=== PATIENT | male | born 1995 | race Two or more races ===

== ENCOUNTER 2023-06-04 15:39 | Emergency (ER) | payer OTHER ==
[~2023-06-04] VITALS: Ht 152.4 cm; Wt 113.4 kg
[~2023-06-04 15:39] MED LIST: ALLEGRA-D1 TAB.SR . PO; KETO10TA2 PO
== END 2023-06-04 18:06 | disposition home or self-care (01) ==
LOC: ER 15:39
DX: J10.1 Influenza due to other identified influenza virus with other respiratory manifestations (principal); Z20.822 Contact with and (suspected) exposure to COVID-19